=== PATIENT | male | born 1950 | race Caucasian/White ===

== ENCOUNTER 2018-06-17 16:36 | Inpatient (IN) | payer MEDICARE ==
[~2018-06-17] VITALS: Ht 177.8 cm; Wt 122.5 kg
[2018-06-17] MEDS ORDERED: ALBUTEROL FS 2.5 MG/3 ML VIAL.NEB ONE (16:42)
[2018-06-17] MEDS ORDERED: IPRATROPIUM NEB FS 0.5 MG/2.5 ML AMPUL.NEB ONE (16:42)
[2018-06-17] MEDS ORDERED: Magnesium 1GM/D5W 100ML PREMIX 200 ML IV ONE ×2 (16:42→17:32)
[2018-06-17 16:51] VITALS: BP 177/123
--- NOTE | 2018-06-17 16:53 | NUR ---
[id number], FROM WORK, C/O SOB, ON CPAP 02 SAT 100%, ALBUTEROL GIVEN 0.5 EPI IM GIVEN BY EMS. RT AT BEDSIDE, PT CONNECTED TO LOCAL CPAP. PT IN ACUTE DISTRESS, SKIN SLIGHTLY PALE BUT INTACT. BED IN HIGH-LUX'S POSITION FOR BETTER AIRWAY EXCHANGE. ON MONITOR AND MADE COMFORTABLE POSSIBLE. READY FOR EVAL.
--- NOTE | 2018-06-17 16:54 | NUR ---
RT PLACED PT ON BIPAP WITH NOTED SETTINGS PER ER MD. BREATHING TX GIVEN PER MD ORDER. WILL OBTAIN AN ABG POST 1 HR ON BIPAP PER MD ORDER. WILL CONTINUE TO MONITOR.
[2018-06-17] MEDS ORDERED: ALBUTEROL FS 2.5 MG/3 ML VIAL.NEB CONTNEB ONE (17:00)
[2018-06-17] MEDS ORDERED: IPRATROPIUM NEB FS 0.5 MG/2.5 ML AMPUL.NEB NEB ONE (17:00)
[2018-06-17] MEDS ORDERED: methylPREDNISolone SOD SUCC 125 MG/2ML VIAL IV ONE (17:00)
[2018-06-17] MEDS ORDERED: IV NS 0.9% 1,000 ML BAG IV ONE (17:00)
[2018-06-17 17:06] LABS: BASOPHILS # (AUTO) 0.2 /CMM (0.0-0.2); BASOPHILS % (AUTO) 1.5 % (0.0-2.0); HEMATOCRIT 52 % (39-51); HEMOGLOBIN 17.5 g/dL (13.5-17.5); LYMPHOCYTES # (AUTO) 1.7 /CMM (0.8-4.8); LYMPHOCYTES % (AUTO) 16.2 % (20.0-44.0); MEAN CORPUSCULAR HGB CONC 34 g/dl (31.0-36.0); MEAN CORPUSCULAR VOLUME 96 fL (80-96); MONOCYTES % (AUTO) 9.3 % (2.0-12.0); NEUTROPHILS # (AUTO) 7.1 /CMM (1.8-8.9); PLATELET COUNT (AUTO) 282 /CMM (150-450); RED BLOOD CELL COUNT(AUTO) 5.39 MIL/uL (4.5-6.0); WHITE BLOOD COUNT (AUTO) 10.4 K/uL (4.3-11.0)
[2018-06-17 17:14] LABS: CALCIUM, SERUM 9.1 mg/dL (8.5-10.1); CARBON DIOXIDE 28 mmol/L (21-32); CHLORIDE 104 mmol/L (98-107); CREATININE 1.1 mg/dL (0.6-1.3); GLUCOSE 94 mg/dL (74-106); POTASSIUM 4.7 mmol/L (3.5-5.1); SODIUM SERUM 140 mmol/L (136-145); UREA NITROGEN, BLOOD 15 mg/dL (7-18)
--- NOTE | 2018-06-17 17:30 | NUR ---
ONGOING BREATHING TX
[2018-06-17] MEDS ORDERED: methylPREDNISolone SOD SUCC 125 MG/2ML VIAL ONE (17:31)
[2018-06-17 17:32] LABS: ALANINE AMINOTRANSFERASE 36 U/L (12-78); ALBUMIN 4.3 g/dL (3.4-5.0); ALKALINE PHOSPHATASE 106 U/L (46-116); ASPARTATE AMINOTRANSFERASE 24 U/L (15-37); BILIRUBIN,DIRECT 0.2 mg/dL (0.0-0.2); BILIRUBIN,TOTAL 0.9 mg/dL (0.2-1.0); TOTAL PROTEIN, SERUM 7.9 g/dL (6.4-8.2)
--- NOTE | 2018-06-17 17:47 | NUR ---
CALLED FOR ICU BED
--- NOTE | 2018-06-17 18:27 | NUR ---
PT STATES FEELING MUCH BETTER. VOICES THAT HE DOES NOT WANT TO BE ADMITTED. MD NOTIFIED.
[2018-06-17] MEDS ORDERED: HYDROCODONE/APAP 5/325MG 1 EACH TABLET PO PRN (18:30)
[2018-06-17] MEDS ORDERED: MAGNESIUM HYDROXIDE 30 ML UDC PO PRN (18:30)
[2018-06-17] MEDS ORDERED: ONDANSETRON HCL/PF 4 MG/2 ML VIAL IVP PRN (18:30)
[2018-06-17] MEDS ORDERED: TEMAZEPAM 15 MG CAPSULE PO PRN (18:30)
[2018-06-17] MEDS ORDERED: MAG HYDROX/AL HYDROX/SIMETH 30 ML UDC PO PRN (18:30)
[2018-06-17] MEDS ORDERED: ACETAMINOPHEN 325 MG TABLET PO PRN (18:30)
[2018-06-17] MEDS ORDERED: LISI-603 PO (18:47)
[2018-06-17] MEDS ORDERED: APIX5TAB PO (18:47)
[2018-06-17] MEDS ORDERED: MONT10TA22 PO (18:47)
[2018-06-17] MEDS ORDERED: FLUT1DIS5 IH (18:47)
[2018-06-17] MEDS ORDERED: ATOR40TA PO (18:47)
[2018-06-17] MEDS ORDERED: ALBU2.5V38 IH (18:47)
[2018-06-17] MEDS ORDERED: METO-357 PO (18:47)
[2018-06-17] MEDS ORDERED: ALBU18HF2 IH (18:47)
--- NOTE | 2018-06-17 19:40 | NUR ---
PER COWORKERS, PT AGREES TO BE ADMITTED FOR FURTHER OBSERVATION
--- NOTE | 2018-06-17 19:48 | NUR ---
ICU BED 259
[2018-06-17 20:07] LABS: APPEARANCE,URINE Clear (CLEAR); BILIRUBIN,URINE SMALL (NEGATIVE); BLOOD, URINE Trace-lysed Ery/uL (NEGATIVE); COLOR,URINE Yellow (YELLOW); KETONES,URINE Negative (NEGATIVE); LEUKOCYTE ESTERASE ,URINE Negative (NEGATIVE); NITRITE, URINE Negative (NEGATIVE); PROTEIN,URINE 30 mg/dl (NEGATIVE); UGLUCOSE Negative (NEGATIVE); UROBILINOGEN,URINE 0.2 EU/dL (0.2)
[2018-06-17 20:19] LABS: BACTERIA,URINE Rare /HPF (None Seen); RBC,URINE 2-3/HPF /HPF (0-2); SQUAMOUS EPITHELIAL CELL,UR Few /HPF (None Seen); URINE AMORPHOUS URATE Few /HPF (None Seen); WBC,URINE 0-2 /HPF (0-3)
[2018-06-17 20:20] LABS: MUCUS,URINE Moderate /LPF (None Seen)
--- NOTE | 2018-06-17 20:21 | NUR ---
REPORT GIVEN TO [facility] FOR ICU 259
--- NOTE | 2018-06-17 20:35 | NUR ---
ADMITTING NOTES RECEIVED PT TRANSFERRED FOR ICU VIA [facility]. PT ABLE TO TRANSFERRED SELF TO BED IN STEADY GAIT. PT IS A/O X4. ON ROOM AIR, PT VERBALIZED SOB WHEN LYING FLAT ON BED/EXERTION. PLACED ON 2L O2 VIA NC, PT VERBALIZED COMFORT. VS TAKEN AND PHYSICAL ASSESSMENT DONE. ORIENTED TO ROOM AND USE OF CALL LIGHT. ALL NEEDS ANTICIPATED. CALL LIGHT WITHIN REACH. WILL CONT TO MONITOR PT PER DENICE FAREBOX REPAIRER. BIPAP/CPAN NOT NEEDED UPON TRANSFER
--- NOTE | 2018-06-17 20:42 | NUR ---
PT TRANSFERRED TO [facility] TO [facility] FOR DAVID
[2018-06-17 20:58] VITALS: BP 157/100
[2018-06-17] MEDS: methylPREDNISolone SOD SUCC 40 MG/ML VIAL IV SCH (21:24)
[2018-06-17] MEDS: ALBUTEROL FS 2.5 MG/0.5 ML VIAL.NEB NEB PRN (22:09)
[2018-06-17] MEDS: IPRATROPIUM NEB FS 0.5 MG/2.5 ML AMPUL.NEB NEB PRN (22:09)
[2018-06-18] VITALS (9 sets, daily range): BP systolic 130–157; BP diastolic 73–100
[2018-06-18] MEDS: methylPREDNISolone SOD SUCC 40 MG/ML VIAL IV SCH ×3 (04:17→21:55)
--- NOTE | 2018-06-18 06:52 | NUR ---
RN NOTES PT IN STABLE CONDITION. NO ACUTE CHANGES THROUGHOUT SHIFT. ALL NEEDS ANTICIPATED. SAFETY MEASURES OBSERVED AT ALL TIMES. ENDORSED TO AM SHIFT RN FOR DAVID
[2018-06-18 07:28] LABS: BASOPHILS % (AUTO) 0.1 % (0.0-2.0); HEMATOCRIT 47 % (39-51); HEMOGLOBIN 16.2 g/dL (13.5-17.5); LYMPHOCYTES # (AUTO) 0.6 /CMM (0.8-4.8); LYMPHOCYTES % (AUTO) 9.1 % (20.0-44.0); MEAN CORPUSCULAR HGB CONC 35 g/dl (31.0-36.0); MEAN CORPUSCULAR VOLUME 93 fL (80-96); MONOCYTES # (AUTO) 0.1 /CMM (0.1-1.30); MONOCYTES % (AUTO) 1.5 % (2.0-12.0); NEUTROPHILS # (AUTO) 5.6 /CMM (1.8-8.9); NEUTROPHILS % (AUTO) 89.3 % (43.0-81.0); PLATELET COUNT (AUTO) 250 /CMM (150-450); RED BLOOD CELL COUNT(AUTO) 5.04 MIL/uL (4.5-6.0); WHITE BLOOD COUNT (AUTO) 6.3 K/uL (4.3-11.0)
[2018-06-18 07:34] LABS: CREATININE 0.9 mg/dL (0.6-1.3); MAGNESIUM 2.8 mg/dL (1.8-2.4); PHOSPHORUS 3.2 mg/dL (2.5-4.9); POTASSIUM 4.4 mmol/L (3.5-5.1)
--- NOTE | 2018-06-18 07:38 | NUR ---
[facility] RN NOTES RECEIVED PATIENT, ALERT ORIENTED X 3. PATIENT ON 3 L NASAL CANNULA WITH A SLIGHT SOB NOTED. PATIENT ON TELE MONITOR WITH SR HR 99 WITH PVC. RIGHT FOREARM HL INTACT NO SIGNS OF INFECTION. NOTED BOTH LEGS WITH EDEMA AND ENCOURAGED TO KEEP ELEVATED TOLERATED. CALL LIGHT WITHIN REACH. PLAN OF CARE DISCUSSED WITH THE PATIENT AND WILL CONTINUE TO MONITOR
[2018-06-18 07:42] LABS: THYROID STIMULATING HORMONE 0.715 uIU/mL (0.358-3.74)
[2018-06-18] MEDS: PANTOPRAZOLE 40 MG TABLET.DR PO SCH (08:03)
--- NOTE | 2018-06-18 08:15 | NUR ---
[facility] RN NOTE WOUND CARE NURSEQUINTIN AT BEDSIDE TO SEE PATIENT ,WILL FOLLOW UP
--- NOTE | 2018-06-18 08:25 | NUR ---
WOUND CARE CONSULT: PT PRESENTS WITH LOWER LEG/ANKLE AREA BUMPS WITH SCABS AND SCARS, PRESENT ON ADMISSION. SCAR AND SCAB NOTED TO BACK ALSO, PRESENT ON ADMISSION. DEFER TO MD FOR SKIN CONDITION. LIMITED ASSESSMENT TODAY DUE TO PT REFUSAL TO REMOVE HIS JEANS. PT IS SHIRTLESS. PT AMBULATORY AND CONTINENT. CURRENT PASCALE SCORE IS 21. WILL SEE PRN. Addendum: 06/18/18 at 0827 by QUINTIN BRANNON WNDNU Amended: Links added.
[2018-06-18] MEDS: IPRATROPIUM NEB FS 0.5 MG/2.5 ML AMPUL.NEB NEB PRN (10:59)
[2018-06-18] MEDS: ALBUTEROL FS 2.5 MG/0.5 ML VIAL.NEB NEB PRN (10:59)
--- NOTE | 2018-06-18 11:18 | NUR ---
[facility] RN NOTE C\O SOB ,CALLED TO RT, BREATHING TX DOING, ALL NEEDS ATTENDED, WILL CONT TO MONITOR
--- NOTE | 2018-06-18 11:56 | NUR ---
[facility] RN NOTE SPOKE WITH DR DE LA CRUZ NOTIFIED THAT MED RECON NOT DONE , STATED THAT WILL DO IT , AWARE THAT BP WAS EARLIER 142/86
--- NOTE | 2018-06-18 15:12 | NUR ---
[facility] RN NOTE ON RA SAT 87% PT ESCORT NOTIFIED KIRK TO ARRANGE O2 AT HOME
[2018-06-18] MEDS: IPRATROPIUM NEB FS 0.5 MG/2.5 ML AMPUL.NEB NEB SCH ×3 (16:28→23:01)
[2018-06-18] MEDS: ALBUTEROL FS 2.5 MG/0.5 ML VIAL.NEB NEB SCH ×3 (16:28→23:01)
--- NOTE | 2018-06-18 16:40 | NUR ---
SENIOR TERADATA DEVELOPER NOTE ON BREATHING TX BY RT ALL NEEDS ATTENDED, WILL CONT TO MONITOR CLOSELY
--- NOTE | 2018-06-18 18:18 | NUR ---
[facility] RN NOTE HAVING DINNER , ABLE TO EAT SELF .ON O2 ORDERED, NO SOB NOTED , ALL NEEDS ATTENDED ,WILL CONT TO MONITOR CLOSELY
--- NOTE | 2018-06-18 20:00 | NUR ---
[facility] RN INITIAL NOTES RECEIVED PATIENT, ALERT ORIENTED X 3. PATIENT ON 3 L NASAL CANNULA WITH A SLIGHT SOB NOTED. PATIENT ON TELE MONITOR WITH SR HR 90'S SR WITH PVC. RIGHT FOREARM HL INTACT NO SIGNS OF INFECTION. NOTED BOTH LEGS WITH EDEMA AND ENCOURAGED TO KEEP ELEVATED TOLERATED. CALL LIGHT WITHIN REACH. PLAN OF CARE DISCUSSED WITH THE PATIENT AND WILL CONTINUE TO MONITOR
[2018-06-19] VITALS: BP 130/67
[2018-06-19] MEDS: ALBUTEROL FS 2.5 MG/0.5 ML VIAL.NEB NEB SCH ×4 (03:13→15:59)
[2018-06-19] MEDS: IPRATROPIUM NEB FS 0.5 MG/2.5 ML AMPUL.NEB NEB SCH ×4 (03:13→15:59)
[2018-06-19] MEDS: methylPREDNISolone SOD SUCC 40 MG/ML VIAL IV SCH ×2 (04:18→12:44)
[2018-06-19 04:49] VITALS: BP 147/76
--- NOTE | 2018-06-19 06:36 | NUR ---
[facility] RN ENDORSED NOTES ENDORSED PATIENT, ALERT ORIENTED X 3. PATIENT ON 3 L NASAL CANNULA WITH A SLIGHT SOB NOTED. PATIENT ON TELE MONITOR WITH SR HR 90'S SR WITH PVC. RIGHT FOREARM HL INTACT NO SIGNS OF INFECTION. NOTED BOTH LEGS WITH EDEMA AND ENCOURAGED TO KEEP ELEVATED TOLERATED. CALL LIGHT WITHIN REACH. PLAN OF CARE DISCUSSED WITH THE PATIENT AND WILL CONTINUE TO MONITOR
--- NOTE | 2018-06-19 07:30 | NUR ---
RN NOTES RECEIVED PATIENT SITTINGG IN BED, ALERT ORIENTED X 4. ABLE TO MAKE NEEDS KNOWN. PATIENT ON 3 L NASAL CANNULA WITH USE OF ACCESSORY MUSCLE ON BREATHING, PATIENT STATES " IM OK JUST A LITTLE DIFFICULTY. DO YOU THINK I CAN HAVE BREATHING TREATMENT?" -WILL INFORM RT. SATS 98%. PATIENT SR ON THE MONITOR HR AT 80'S. RIGHT FOREARM HL IN PLACE AND INTACT, DRESSING CDI, NO SIGNS OF INFECTION NOTED. SAFETY MEASURES OBSERVED AND MAINTAINED. BED IN LOCKED AND LOW POSITION, ENCOU[place] TO USE CALL LIGHT FOR HELP OR ASSISTANCE. CALL LIGHT WITHIN REACH. PLAN OF CARE DISCUSSED WITH THE PATIENT AND WILL CONTINUE TO MONITOR CLOSELY
[2018-06-19 08:00] VITALS: BP 139/87
[2018-06-19] MEDS: PANTOPRAZOLE 40 MG TABLET.DR PO SCH (08:36)
--- NOTE | 2018-06-19 11:00 | NUR ---
RN NOTES SEEN AND EXAMINED BY DR STOCK. NO NEW ORDERS AT THIS TIME
[2018-06-19 12:00] VITALS: BP 139/76
[2018-06-19] MEDS ORDERED: PRED20TA PO (12:45)
--- NOTE | 2018-06-19 12:45 | NUR ---
RN NOTES SEEN AND EXAMINED BY DR DE LA CRUZ, WITH ORDERS FOR DISCHARGE. ORDER NOTED AND CARRIED OUT
[2018-06-19 16:00] VITALS: BP 148/87
--- NOTE | 2018-06-19 19:20 | NUR ---
RN NOTES PATIENT DISCHARGE. ALL QUESTIONS AND CONCERNS ADDRESSED APPROPRIATELY. OFFERED VACCINES BUT PATIENT REFUSED. ALL MEDICATION AND DISCHARGE INSTRUCTION GIVEN TO PATIENT. MEDICATION GIVEN BACK. SKIN ASSESSMENT DONE, PHOTOS TAKEN AND FILED. BELONGINGS ACCOUNTED AND RETURNED TO PATIENT. IV LINE AND ID BAND REMOVED. OXYGEN TANK AND OXYGEN CONCENTRATOR RECEIVED BY THE PATIENT BEFORE GETTING OUT OF THE UNIT. PATIENT ACCOMPANIED BY FRIEND.
== END 2018-06-19 19:20 | disposition home or self-care (01) | DRG 189 ==
LOC: ER 16:39 → ICU 20:05 → TELE-TD 20:44 → TELE1 06-19 10:01
PROVIDERS: ADMIT Nurse Practitioner Acute Care
PROC: 5A09357 Assistance with Respiratory Ventilation, Less than 24 Consecutive Hours, Continuous Positive Airway Pressure (ICD-10-PCS; principal; 2018-06-17)
DX: J96.01 Acute respiratory failure with hypoxia (principal); J45.901 Unspecified asthma with (acute) exacerbation; J45.902 Unspecified asthma with status asthmaticus; I10 Essential (primary) hypertension; E66.01 Morbid (severe) obesity due to excess calories; Z91.19 Patient's noncompliance with other medical treatment and regimen; G47.33 Obstructive sleep apnea (adult) (pediatric); Z68.38 Body mass index [BMI] 38.0-38.9, adult
CPT/HCPCS: 36415; 70220-TC; 71045-TC; 80048-TC; 80061-TC; 80076-TC; 81000-TC; 83605-TC; 83735-TC; 84100-TC; 84443-TC; 84484-TC; 85025-TC; 85730-TC; 87040-TC; 87081-TC; 87086-TC; 94799-TC; G0378; J2920; J2930; J3475; J7030; J7050